=== PATIENT | female | born 1990 | race Caucasian/White ===

== ENCOUNTER 2024-01-09 14:13 | Outpatient (REF) | payer MEDICAID, SELFPAY ==
[2024-01-09 14:34] LABS: MANUAL DIFF FLAG NO
[2024-01-09 15:26] LABS: Basophils Absolute Auto 0.1 X10*3/uL (0.0-0.2); Basophils Percent Auto 1.2 % (0-2); Eosinophils Absolute Auto 0.1 X10*3/uL (0.0-0.4); Hematocrit 37.8 % (37.0-47.0); Hemoglobin 12.6 g/dl (12.0-16.0); Imm Gran Abs Auto 0.03 X10*3/uL (0.00-0.03); Imm Gran Pct Auto 0.4 % (0.0-0.4); Lymphocytes Absolute Auto 2.3 X10*3/uL (1.2-4.9); Lymphocytes Percent Auto 33.5 % (20-40); Mean Corpuscular HGB Conc 33.3 g/dl (31.0-35.0); Mean Corpuscular Hemoglobin 28.5 pg (27.0-33.0); Mean Corpuscular Volume 85.5 fL (80.0-98.0); Mean Platelet Volume 11.1 fL (9.4-12.3); Monocytes Absolute Auto 0.5 X10*3/uL (0.1-1.2); Monocytes Percent Auto 7.3 % (2-11); Neutrophils Absolute Auto 3.9 x10*3/uL (2.0-8.3); Neutrophils Percent Auto 56.6 % (45-73); Platelet Count 200 X10*3/uL (160-400); Red Blood Count 4.42 X10*6/uL (4.20-5.50); White Blood Count 6.8 X10*3/uL (4.8-10.8)
[2024-01-09 15:51] LABS: Alanine Aminotransferase 19 U/L (0-31); Albumin Level 4.3 g/dL (3.5-5.0); Alkaline Phosphatase 43 U/L (39-117); Anion Gap 13 (12-20); Aspartate Amino Transferase 21 U/L (5-31); Bilirubin Total 0.4 mg/dL (0.0-1.0); Blood Urea Nitrogen 13 mg/dL (9-16); Calcium 9.4 mg/dL (8.4-10.2); Carbon Dioxide 25 mmol/L (22-29); Chloride 107 mmol/L (96-108); Estimated Glomerular Filt Rate 57; Glucose Random 95 mg/dL (60-115); Potassium 4.1 mmol/L (3.3-5.1); Sodium 141 mmol/L (135-145); Total Protein 7.1 g/dL (6.5-8.0)
[2024-01-10 09:04] LABS: HBS Num1 0.75 mIU/mL (0-7.99); HBsAGNum1 0.22 S/CO (0.00-0.99); Hepatitis B Core Antibody Nonreactive (Nonreactive); Hepatitis B Surface Antigen Negative (Negative); ~Hepatitis B Surface Antibody NONREACTIVE (Nonreactive)
[2024-01-12 08:58] LABS: TS Negative Control Passed; TS Panel A 0; TS Panel B 0; TS Positive Control Passed; TSpotTB Negative (Negative)
== END 2024-01-09 14:14 | disposition home or self-care (01) ==
LOC: HO.LAB 14:13
PROVIDERS: PCP Internal Medicine; Visit Provider Internal Medicine
DX: Z00.00 Encounter for general adult medical examination without abnormal findings (principal); F31.9 Bipolar disorder, unspecified; L40.8 Other psoriasis; Z11.1 Encounter for screening for respiratory tuberculosis
CPT/HCPCS: 36415; 80053; 85025; 86481; 86704; 86706; 86735; 86762; 86765; 87340

== ENCOUNTER 2024-11-25 09:34 | Outpatient (AMB) | payer MEDICAID, SELFPAY ==
--- NOTE | 2024-11-25 09:34 | MHC.OFFVIS ---
Vital Signs 11/25/24 09:45 Height 4 ft 11 in Weight 146 lb BMI 29.5 BP 119/64 Blood Pressure Location Lt brachial Position Sitting Pulse 78 Intake Visit Reasons: Pionidal sinus & Extn hemorrhoids Intake Note: Patient is seen in office for evaluation of a pilonidal and external hermorrhoids. Pt c/o: onset after pregnacy 3 yrs ago, visible external hemorrhoids, bleeding constipation on and off, straining, had a pilonidal cyst removed to years ago and thinks might have come back, discharge at times Architectural Associate Required: No Audiovisual Production Specialist: Audiovisual Production Specialist Present Accompanied by: Self / Same As Patient Allergies bacitracin [BACITRACIN] Allergy (Unknown, Unverified 11/25/24 09:42) UNKNOWN Medication List - Last Reconciled 11/25/24 by Gamal Dodge MD secukinumab (Cosentyx 300 mg/2 Syringes () 300 mg subcut Q4W HPI HPI Pionidal sinus & Extn hemorrhoids: Details: 34-year-old female referred for hemorrhoids and a perianal cyst. She says she has had large hemorrhoids after she was many years ago. This had been causing pain and discomfort and she says that this has been worsening over the years. She says that the hemorrhoids swell up frequently now. She denies any significant bleeding. She does admit to some chronic constipation. She also says that she has had this cyst on the right side of her anus the past 5 months. She describes this to swell up periodically as well and had some drainage before. She wants this removed as well. [facility] Medical History (Updated 11/25/24 @ 10:02 by Gamal Dodge MD) Perianal cyst Hemorrhoids with complication Surgical History History of tonsillectomy History of 2 sections Review of Systems Const Denies chills and Denies fever(s) Card Denies chest pain, Denies dyspnea and Denies dyspnea on exertion Resp Denies cough, Denies dyspnea and Denies dyspnea on exertion GI Denies hematochezia and Denies change in bowel habits Denies hematuria Musc Denies back pain and Denies limited range of motion Neuro Denies focal weakness and Denies convulsions Psych Denies depression and Denies mood swings Physical Exam Vital Signs: Last Vital Signs Pulse 78 04/02/25 09:45 BP 119/64 11/25/24 09:45 BMI result Body Mass Index 29.5 Const General: comfortable and no acute distress Orientation/consciousness: patient oriented x3 Neck Neck: Yes no lymphadenopathy Resp Auscultation: clear to auscultation bilaterally Cardio Rhythm: regular rhythm GI Other: Rectal exam shows multiple external hemorrhoids on both the left and right side; there was also note of a cystic induration on the right perianal area, about 5 mm in diameter, not actively draining, no redness on a fluctuance Palpation (GI): Soft to palpation, nontender and no guarding Neuro General: patient oriented x3 Assessment & Plan Assessment & Plan (1) Hemorrhoids with complication: Code(s): K64.8 - Other hemorrhoids Category: Medical Plan: Examination shows large external hemorrhoids on both the left and right side. She describes worsening pain and discomfort over the years. She says that these have been swelling up frequently. She wants these removed. I explained the technique of exam under anesthesia and hemorrhoidectomy. I reviewed the risks including but not limited to bleeding and infections, as well as the benefits and alternatives. I also explained to her what to expect postoperatively including significant pain. She wants to proceed We will also excise the perianal cyst on the right side. This may be a fistula as well so there is a chance that we may need to leave a seton. She understands the technique of this procedure as well. (2) Perianal cyst: Code(s): K62.89 - Other specified diseases of anus and rectum Category: Medical Plan: She understands that technique of excision. If this is a fistula, then we may need to leave a drain or do a fistulotomy. She understands the technique of this as well and knows what to expect postoperatively. Coding Level of Care Code New Pt Level 3 (18501) Diagnoses Hemorrhoids with complication K64.8 Perianal cyst K62.89
[2024-11-25 09:45] VITALS: BP 119/64; PULSE 78; BMI 29.5
--- OUTSIDE RECORDS SUMMARY | 2024-11-25 10:43 | XMS_ITS | Clinical Summary ---
Author Organization [facility] Address [address] [place] [address] Care Team Providers Care Finished Stock Inspector Name Role Phone Unavailable Primary Care Provider Unavailabl e Source Comments PLEASE NOTE, if this patient is a minor, it may be UNLAWFUL to discuss sensitive information that is contained in these records (such as FAMILY PLANNING, MENTAL HEALTH or SUBSTANCE ABUSE) with the minor patient's parent or other person without the patient's specific authorization.[facility] Allergies Active Allergy Reactions Criticality Noted Date Comments Bacitracin Rash Medications clindamycin (CLEOCIN T) 1 % lotion 3 05/19/2015 Active clobetasol (TEMOVATE) 0.05 % external solution 6 07/15/2015 Active clotrimazole-bet amethasone (LOTRISONE) 1-0.05 % cream 1 05/18/2015 Acti ve triamcinolone (KENALOG) 0.1 % cream 1 05/19/2015 Active tretinoin (RETIN-A) 0.025 % cream 3 05/19/2015 Active glucosamine-jaida droitin 500-400 mg per capsuleIndicatio ns:Arthralgia of both knees Take 1 Cap by mouth 2 (two) times daily. 60 Cap 3 08/11/2015 Active Active Problems Problem Noted Date Diagnosed Date control counseling 08/06/2014 Overview (08/06/2014): [facility]23[facility]13 [facility] no [facility] in [facility] noted Eczema Impetigo Scoliosis Overview (05/22/2013): mild Immunizations Immunization Administration Dates Next Due Flu, Preservative Free 06/29/2019 HPV, QUADRIVALENT 04/23/2013, 0,04/23/2007, 007 Hep A, adult 02/02/2009 INFLUENZA, SEASONAL, INJECTABLE 05/22/2011,09/09,06/02/2009 Novel [id number], injectable 09/09/2009 PPD 06/29/2019,08/12/2015 TDAP 06/29/2019 Social History Tobacco Use Types Packs/Day Years Used Date Smoking Tobacco: Never Smokeless Tobacco: Never Alcohol Use Standard Drinks/Week Comments No 0 (1 standard drink = 0.6 oz pur e alcohol) Social Connections Answer Date Recorded Connectedness 0 05/13/2024 Financial Resource Strain Answer Date R ecorded Financial Resource Strain 0 2018 Stress Answer Date Recorded Stress 0 04/18/2019 Physical Activity Answer Date Recorded Physical Activity 0 04/18/2019 Food Insecurity Answer Date Recorded Food 0 2024 Transportation Needs Answer Date Record ed Transportation 0 04/18/2019 Housing Stability Answer Date Recorded Housing 0 04/18/2019 Safety and Environment Answer Date Werner rded Safety 0 04/18/2019 Utilities Answer Date Recorded Utilities 0 04/18/2019 Employment Answer Date Recorded Stress 0 05/13/2024 Comments No Sex and Gender Information Value Date Recorded Sex Assigned at Female 06/29/2019 7:11 AM PST Legal Sex Female 11:36 AM PDT Gender Identity Female 06/29/2019 7:11 AM PST Sexual Orientation Straight 06/30/2019 3: 29 AM PST Last Filed Vital Signs Vital Sign Reading Time Taken Comments Blood Pressure 120/70 06/29/2019 10:13 AM EST Pulse 90 06/29/2019 10:13 AM EST Temperature 36.7 ??C (98 ??F) 06/29/2019 10: 13 AM EST Respiratory Rate 16 06/29/2019 10:1 3 AM EST Oxygen Saturation - - Inhaled Oxygen Concentration - - Weight 73.4 kg (161 lb 12.8 oz) 019 10:13 AM EST Height 149.9 cm (4' 11 ) 06/29/2019 10: 13 AM EST Body Mass Index 32.68 06/29/2019 10:13 AM EST Plan of Treatment Not on file Insurance [facility] [facility]
== END 2024-11-25 10:15 | disposition home or self-care (01) ==
LOC: HO.HGS 09:35
PROVIDERS: PCP Internal Medicine; Referring Provider Internal Medicine; Visit Provider Surgery
DX: K64.8 Other hemorrhoids (principal); K62.89 Other specified diseases of anus and rectum
CPT/HCPCS: 99203

== ENCOUNTER → 2024-11-25 09:34 | Outpatient (BNVA) | payer MEDICAID, SELFPAY | PROVIDERS: PCP Internal Medicine; Referring Provider Internal Medicine; Visit Provider Surgery | DX: K64.8 Other hemorrhoids (principal); K62.89 Other specified diseases of anus and rectum | CPT/HCPCS: 99202 ==

== ENCOUNTER 2024-12-18 11:58 | Day surgery (SDC) | payer MEDICAID, SELFPAY ==
--- OUTSIDE RECORDS SUMMARY | 2024-12-16 08:57 | XMS_ITS | Clinical Summary ---
Author Organization [facility] Address [address] [place] [address] Care Team Providers Care Insulation Batting Machine Operator Name Role Phone Unavailable Primary Care Provider [...] adult 02/02/2009 INFLUENZA, SEASONAL, INJECTABLE 05/22/2011,09/09,06/02/2009 Novel [id number], injectable 09/09/2009 PPD 06/29/2019,08/12/2015 TDAP 06/29/2019 Social [...] Treatment Not on file [facility]
[2024-12-16 09:01] VITALS: BMI 29.5
--- NOTE | 2024-12-17 10:08 | HO.ANESPROP2 ---
Documented by User: Juana Carballo NP 12/17/24 10:08 HPI - Anesthesia Eval Consult details Narrative: 34yo F for EUA, Hemorrhoidectomy, possible seton placement/fistulotomy, Excision Perineal Cyst PMFSH Active Problems Active Problems: All Active Problems Perianal cyst (Acute) Hemorrhoids with complication (Acute) Past Medical History Medical History Psoriasis Depression Perianal cyst Hemorrhoids with complication Surgical History Surgical History History of tonsillectomy History of 2 sections Social History Social History Are you a primary pharmacist critical care to a significant other at home: No Do you presently have visiting nurse or other home services: No Patient Tobacco Use Status: Never used Tobacco Use of substances other than those prescribed or required for medical reasons: Yes Substance Use Frequency: Daily Have you been hit, kicked, punched, or otherwise hurt by someone within the past year? If so, by whom?: No Are you DNR?: No Advance Directives: No Advance Directives Information Provided: Yes Patient : No FDLMP: 12/08/2024 Poor oral hygiene: No Meds Allergies Allergy/AdvReac Type Severity Reaction Status Date / Time bacitracin [BACITRACIN] Allergy Unknown Unknown Verified 12/18/24 12:40 Home Medications ?Medication ?Instructions ?Recorded ?Confirmed ?Last Taken ?Type secukinumab 150 mg/mL subcutaneous 300 mg subcut Q4W 11/25/24 12/16/24 Unknown History syringe (Cosentyx 300 mg/2 Syringes () Exam Height,Weight and Vital Signs: Height 4 ft 11 in Weight 66.224 kg Assessment and Plan Assessment Anesthesia Assessment: Chart Reviewed Documented by User: Purvi Gallegos MD 12/18/24 13:27 PMFSH Past Medical History Medical History Psoriasis Depression Perianal cyst Hemorrhoids with complication Surgical History Surgical History History of tonsillectomy History of 2 sections History of Problems with Anesthesia: No Social History Social History Are you a primary pharmacist critical care to a significant other at home: No Do you presently have visiting nurse or other home services: No Patient Tobacco Use Status: Never used Tobacco Use of substances other than those prescribed or required for medical reasons: Yes Substance Use Frequency: Daily Have you been hit, kicked, punched, or otherwise hurt by someone within the past year? If so, by whom?: No Are you DNR?: No Advance Directives: No Advance Directives Information Provided: Yes Patient : No FDLMP: 12/08/2024 Poor oral hygiene: No Meds Allergies Allergy/AdvReac Type Severity Reaction Status Date / Time bacitracin [BACITRACIN] Allergy Unknown Unknown Verified 12/18/24 12:40 Home Medications ?Medication ?Instructions ?Recorded ?Confirmed ?Last Taken ?Type secukinumab 150 mg/mL subcutaneous 300 mg subcut Q4W 11/25/24 12/16/24 Unknown History syringe (Cosentyx 300 mg/2 Syringes () Exam Airway Mallampati Class: II TM Dist: >3cm Neck ROM: Full Loose/Missing/Broken Teeth: No Heart: RRR Lungs: CTA Assessment and Plan Assessment Anesthesia Assessment: Anesthesia Plan Discussed Final Anesthetic Review History of Problems with Anesthesia: No NPO: Yes ASA Class: II Final Preanesthetic Review: Meds/Allgs Chart Reviewed, Consent Obtained/Reviewed and Anes Risks/Benef Reviewed Patient Risk: Low Procedure Risk: Low Anesthetic Plan Anesthetic Plan: GA Disposition: Standard PACU
[2024-12-18] VITALS (10 sets, daily range): BP systolic 74–96; BP diastolic 41–61; PULSE 53–91; RESP 12–18; TEMP 36.3–36.7; O2SAT 99–100; BMI 28.9
[2024-12-18] MEDS: Lactated Ringers 1,000 ML 100 ML IVCONT (12:59)
--- NOTE | 2024-12-18 13:23 | MHC.SHP ---
Pre-Procedural Eval Section A - 24 Hr Update-Section A only Date of Service: 12/18/24 The patient is an INPATIENT: No The patient has been examined within 24 hours of the surgical procedure. The History & Physical has been completed within 30 days and I have reviewed it.: Yes Section B - Complete if H&P > 30 days Chief Complaint: Other specified diseases of anus and rectum Allergies: Allergies Allergy/AdvReac Type Severity Reaction Status Date / Time bacitracin [BACITRACIN] Allergy Unknown Unknown Verified 12/18/24 12:40 Plan I have reviewed the history and physical and performed a pertinent physical examination on my patient. No changes have occurred unless specified. Time Spent With Patient Time: Total time managing care of this patient today ____ minutes.
[2024-12-18 13:28] LABS: UPreg QC Valid YES; Urine Pregnancy NEGATIVE (NEGATIVE)
--- NOTE | 2024-12-18 14:15 | P.OP_ITS ---
Operative Note Operative Note Date of Service: 12/18/24 Narrative: Preop diagnosis: Internal and external hemorrhoids, perianal cyst Postop diagnosis: The same Procedure: Exam under anesthesia hemorrhoidectomy x2 columns, and excision of a right perianal cyst Surgeon: Gamal Dodge MD The patient is a 34 year old female with pain and discomfort with her hemorrhoids, along with an complained of a recurrent swelling of a cyst on the right perianal area. She understood the technique of the planned procedure as well as the risks, benefits, and alternatives She was brought to the operating room. She was placed in prone angel-knife position under general anesthesia via endotracheal tube. The buttocks were retracted with wide tape laterally. The perianal area was prepped and draped in the usual sterile fashion. A surgical time-out was done. The patient received Cefotan 2 g IV preoperatively Examination of the anal orifice this revealed external hemorrhoidal columns mostly in the right side. I inserted the Fauzia Tsang retractor. I examined the anal canal circumferentially. Again these hemorrhoidal columns were seen. There were other smaller hemorrhoidal columns the left as well. These hemorrhoidal columns were noted to be mostly external but with a mix of some internal component There was note of a small cystic induration on the right perianal area, probably about 3-4 mm in size, about 45 cm from the anal verge. There was no fistulous tract that was thing this to the anal canal I applied a Owens grasper on the hemorrhoidal column on the right. I made a zeuofq-el-bqadv stitch at the pedicle past the dentate line using a chromic 3- 0 stitch. I made an incision around this hemorrhoidal column to the perianal skin with a blade 15. I excised this hemorrhoidal column above the plane of the sphincters with scissors. I closed this incision with a running chromic 3-0 stitch There was a 2nd hemorrhoidal column that was large on the right side as well just anterior to the 1st 1. Again this was grasped with a Owens grasper. I made a iuqhpa-cj-ueqif stitch at the pedicle. I made an incision around this hemorrhoidal column to the perianal skin and excise this above the plane of the sphincters with scissors. I closed this incision with a running chromic 3-0 stitch Hemostasis was observed I then made an elliptical incision on the cystic induration on the right perianal area. This was made with a made a blade 15. This was carried down through the full-thickness of the skin and subcutaneous fat. This incision was closed with full-thickness chromic 3-0 simple sutures as well. I infiltrated the perianal area with Marcaine 0.5% for postop analgesia Once hemostasis was confirmed, the procedure was completed The patient tolerated the procedure well. There were no immediate complications. Initial and final counts of sponges and instruments were correct. Estimated blood loss was about 20 cc. The patient was extubated without difficulty and transferred to the recovery room with stable vital signs.
== END 2024-12-18 15:38 | disposition home or self-care (01) ==
PROVIDERS: Nurse Practitioner; PCP Internal Medicine; Visit Provider Surgery
PROC: (CPT 46260; principal; 2024-12-18 13:40)
PROC: (CPT 46260; 2024-12-18 13:40)
DX: K62.89 Other specified diseases of anus and rectum (principal); K61.0 Anal abscess; K64.8 Other hemorrhoids; K64.4 Residual hemorrhoidal skin tags; Z79.899 Other long term (current) drug therapy
CPT/HCPCS: 46260; 11471; 81025; 88304; 88305; J1100; J1885; J2003; J2250; J2405; J2704; J2795; J3010

== ENCOUNTER → 2024-12-18 11:58 | Outpatient (BNV) | payer MEDICAID, SELFPAY | PROVIDERS: PCP Internal Medicine; Visit Provider Surgery | DX: K64.8 Other hemorrhoids (principal); L72.0 Epidermal cyst | CPT/HCPCS: 11421; 46260 ==

== ENCOUNTER 2024-12-28 15:22 | Outpatient (AMB) | payer MEDICAID, SELFPAY ==
[2024-12-28 15:24] VITALS: BP 117/68; PULSE 94; O2SAT 99; BMI 28.4
--- NOTE | 2024-12-28 15:24 | A.OFFVIS_ITS ---
Vital Signs 12/28/24 15:24 Height 4 ft 11 in Weight 140 lb 10.479 oz BMI 28.4 BP 117/68 Blood Pressure Location Lt brachial Position Standing Pulse 94 Pulse Source Pulse Oximeter Pulse Oximetry (%) 99 Oxygen Delivery Method Room Air Intake Visit Reasons: s/p hemorrhoidectomy,cyst,poss seton Intake Note: Pt presents for a s/p hemorrhoidectomy,cyst, poss seton. Allergies bacitracin [BACITRACIN] Allergy (Unknown, Verified 12/28/24 15:28) Unknown Medication List - Last Reconciled 12/28/24 by Gamal Dodge MD docusate sodium (Colace) 100 mg PO BID ibuprofen 600 mg PO Q6H PRN secukinumab (Cosentyx 300 mg/2 Syringes () 300 mg subcut Q4W HPI HPI s/p hemorrhoidectomy,cyst,poss seton: Details: She underwent hemorrhoidectomy and excision of a perianal cyst under anesthesia last 12/18/2024. She tolerated procedure well She does describe postop pain currently. She denies any fever or chills. She denies any significant bleeding. [facility] Medical History Psoriasis Depression Perianal cyst Hemorrhoids with complication Surgical History History of tonsillectomy History of 2 sections Social History Are you a primary critical care clinical nurse specialist to a significant other at home: No Do you presently have visiting nurse or other home services: No Patient Tobacco Use Status: Never used Tobacco Review of Systems Const Denies chills and Denies fever(s) Card Denies chest pain, Denies dyspnea and Denies dyspnea on exertion Resp Denies cough, Denies dyspnea and Denies dyspnea on exertion GI Reports hematochezia and Denies change in bowel habits Denies hematuria Musc Denies back pain and Denies limited range of motion Neuro Denies focal weakness and Denies convulsions Psych Denies depression and Denies mood swings Physical Exam Vital Signs: Last Vital Signs Pulse 94 12/28/24 15:24 BP 117/68 12/28/24 15:24 Pulse Ox 99 12/28/24 15:24 Oxygen Delivery Method Room Air 12/28/24 15:24 BMI result Body Mass Index 28.4 Const General: comfortable and no acute distress Resp Effort & Inspection: normal respiratory effort GI Other: Hemorrhoidectomy sites healing well although with residual edema; incision from the perianal cyst was also healing well without any obvious infection - no induration or fluctuance Assessment & Plan Assessment & Plan (1) Hemorrhoids with complication: Code(s): K64.8 - Other hemorrhoids Category: Medical Plan: Status post hemorrhoidectomy and excision of a perianal cyst. Her path report shows hemorrhoids. Her incisions are healing well although she still has significant residual edema. I advised her to continue hot Sitz baths. I will prescribe her ibuprofen and her stool softeners I will see her again in the office in about a month for another wound check. (2) Perianal cyst: Code(s): K62.89 - Other specified diseases of anus and rectum Category: Medical Plan: Status post excision. Her path report shows spongiotic dermatitis and inflammatory changes. I explained to her the benign nature of this pathology. Coding Level of Care Code Global (65925) Diagnoses Hemorrhoids with complication K64.8 Perianal cyst K62.89
--- OUTSIDE RECORDS SUMMARY | 2024-12-28 16:59 | XMS_ITS | Clinical Summary ---
Author Organization [facility] Address [address] [place] [address] Care Team Providers Care Skilled Nursing Facilities Professional Name Role Phone Unavailable Primary Care Provider [...] adult 02/02/2009 INFLUENZA, SEASONAL, INJECTABLE 05/22/2011,09/09,06/02/2009 Novel [id number], injectable 09/09/2009 PPD 06/29/2019,08/12/2015 TDAP 06/29/2019 Social [...] Treatment Not on file [facility]
== END 2024-12-28 15:51 | disposition home or self-care (01) ==
LOC: HO.HGS 15:23
PROVIDERS: PCP Internal Medicine; Visit Provider Surgery
DX: K64.8 Other hemorrhoids (principal); K62.89 Other specified diseases of anus and rectum
CPT/HCPCS: 99024

== ENCOUNTER → 2024-12-28 15:22 | Outpatient (BNVA) | payer MEDICAID, SELFPAY | PROVIDERS: PCP Internal Medicine; Visit Provider Surgery | DX: K64.8 Other hemorrhoids (principal); K62.89 Other specified diseases of anus and rectum | CPT/HCPCS: 99212 ==